=== PATIENT | female | born 1990 | race Caucasian/White ===

== ENCOUNTER 2019-01-30 09:13 | Day surgery (SDC) | payer OTHER ==
[2019-01-30] MEDS ORDERED: LIDOCAINE 4% SOLUTION 50 ML BTL (10:07)
[2019-01-30] MEDS ORDERED: MIDAZOLAM 1 MG/ML 2 ML INJ ×3 (11:12)
[2019-01-30] MEDS ORDERED: FENTAnyl 50 MCG/ML VIAL (11:12)
== END 2019-01-30 12:39 | disposition home or self-care (01) ==
LOC: GIL 09:13
DX: R19.7 Diarrhea, unspecified (principal); K20.8 Other esophagitis; K29.30 Chronic superficial gastritis without bleeding
CPT/HCPCS: 43239; 88305